=== PATIENT | female | born 1980 | race Caucasian/White ===

== ENCOUNTER 2016-12-10 20:18 | Emergency (ER) | payer SELFPAY ==
--- NOTE | 2016-12-10 20:28 | NUR ---
CALLED FOR TRIAGE NO ANSWER
--- NOTE | 2016-12-10 20:28 | NUR ---
PATIENT LEFT WITHOUT BEING SEEN BY DR. KIM. NO FURTHER CARE PROVIDED FOR PATIENT.
--- NOTE | 2016-12-10 20:46 | NUR ---
CALLED FOR SECOND TIME NO RESPONSE
== END 2016-12-10 20:28 | disposition left against medical advice (07) ==
LOC: MED 20:18
DX: Z76.0 Encounter for issue of repeat prescription (principal); Z53.21 Procedure and treatment not carried out due to patient leaving prior to being seen by health care provider

== ENCOUNTER 2016-12-14 19:32 | Emergency (ER) | payer OTHER ==
[~2016-12-14] VITALS: Ht 160 cm; Wt 75.5 kg
[2016-12-14 19:41] VITALS: BP 118/71
[2016-12-14 20:14] LABS: BASOPHILS # (AUTO) 0.1 K/uL (0.00-0.22); BASOPHILS % (AUTO) 1.2 % (0.0-2.0); EOSINOPHILS # (AUTO) 0.4 K/uL (0-0.4); EOSINOPHILS % (AUTO) 4.6 % (0.0-4.0); HEMATOCRIT 37.5 % (36-48); HEMOGLOBIN 12.9 g/dL (12.0-16.0); LYMPHOCYTES # (AUTO) 1.6 K/uL (2.5-16.5); LYMPHOCYTES % (AUTO) 20.6 % (20.5-51.1); MEAN CORPUSCULAR HEMOGLOBIN 30 pg (27-31); MEAN CORPUSCULAR HGB CONC 34 g/dL (33-37); MEAN CORPUSCULAR VOLUME 86 fL (80-94); MONOCYTES # (AUTO) 0.8 K/uL (0.8-1.0); MONOCYTES % (AUTO) 10.6 % (1.7-9.3); NEUTROPHILS # (AUTO) 4.8 K/uL (1.8-7.7); PLATELET COUNT (AUTO) 237 K/uL (140-450); RED BLOOD CELL COUNT(AUTO) 4.36 MIL/uL (4.20-5.40); RED CELL DISTRIBUTION WIDTH 13.2 % (11.6-13.7); WHITE BLOOD COUNT (AUTO) 7.7 K/uL (4.8-10.8)
[2016-12-14 20:31] LABS: ALBUMIN 3.9 g/dL (3.4-5.0); ANION GAP 8.5 (8-16); CARBON DIOXIDE 34.1 mmol/L (21-32); CREATININE 0.8 mg/dL (0.6-1.3); POTASSIUM 3.6 mmol/L (3.5-5.1); TOTAL BILIRUBIN 0.9 mg/dL (0.0-1.0)
--- NOTE | 2016-12-14 20:31 | NUR ---
AMBULATED TO ER BED 7
--- NOTE | 2016-12-14 20:31 | NUR ---
Yancy coughlin in ED - 12/14/16 at 2033 by [facility] AMBULATED TO ER BED 4
--- NOTE | 2016-12-14 20:45 | NUR ---
36 Y/O F W/C/O L ARM PAIN R/T ABRASIONS S/P FALL X 3 DAYS. PT DENIES ANY LOC. ABRASIONS NOTED TO L UPPER ARM. NO OTHER S/S OF DISTRESS NOTED. ER MD MADE AWARE.
--- NOTE | 2016-12-14 20:49 | NUR ---
GRACE TEE AT BEDSIDE EVALUATING PT.
[2016-12-14] MEDS ORDERED: SILVER SULFADIAZINE 1% 50 GM JAR TP ONE (20:55)
[2016-12-14 21:15] VITALS: BP 96/66
--- NOTE | 2016-12-14 21:15 | NUR ---
Patient discharged with v/s stable. Written and verbal after care instructions given and explained. Patient alert, oriented and verbalized understanding of instructions. Ambulatory with steady gait. All questions addressed prior to discharge. ID band removed. Patient advised to follow up with PMD OR RETURN TO ER IF CONDITION WORSENS. Rx of TRAMADOL, AND MOTRIN given. Patient educated on indication of medication including possible reaction and side effects. Opportunity to ask questions provided and answered.
== END 2016-12-14 21:15 | disposition home or self-care (01) ==
LOC: MED 19:32
DX: S40.212A Abrasion of left shoulder, initial encounter (principal); S40.812A Abrasion of left upper arm, initial encounter; V86.59XA Driver of other special all-terrain or other off-road motor vehicle injured in nontraffic accident, initial encounter; Y93.89 Activity, other specified; Y92.89 Other specified places as the place of occurrence of the external cause; Y99.8 Other external cause status
CPT/HCPCS: 36415; 73060; 80053; 81025; 85025; 99285

== ENCOUNTER 2018-02-06 20:05 | Emergency (ER) | payer OTHER ==
[~2018-02-06] VITALS: Ht 160 cm; Wt 70.3 kg
[2018-02-06 20:06] VITALS: BP 122/72
[2018-02-06] MEDS ORDERED: KETOROLAC 30 MG/ML VIAL IM ONE (20:50)
[2018-02-06] MEDS ORDERED: IBUPROFEN 600 MG TAB PO ONE (21:05)
[2018-02-06 21:31] VITALS: BP 122/72
== END 2018-02-06 21:31 | disposition home or self-care (01) ==
LOC: MED 20:05
DX: S83.91XA Sprain of unspecified site of right knee, initial encounter (principal); X58.XXXA Exposure to other specified factors, initial encounter; Y93.89 Activity, other specified; Y92.89 Other specified places as the place of occurrence of the external cause; Y99.8 Other external cause status
CPT/HCPCS: 29505; 73562; 81025; 99283; J1885

== ENCOUNTER 2018-06-25 18:21 | Emergency (ER) | payer OTHER ==
[~2018-06-25] VITALS: Ht 160 cm; Wt 78.0 kg
[2018-06-25 19:46] VITALS: BP 127/67
[2018-06-25] MEDS ORDERED: ONDANSETRON 4 MG ODT PO ONE (19:50)
--- NOTE | 2018-06-25 19:50 | NUR ---
PT AMBULATED TO LOBBY WITH VSS.
--- NOTE | 2018-06-25 20:20 | NUR ---
PT AMBULATED TO CHAIR E.
--- NOTE | 2018-06-25 20:30 | NUR ---
PT IS A 37 Y/O FEMALE WHO PRESENTS TO THE ED C/O BILATERAL EAR PAIN. PT STATES THAT IT HAS BEEN GOING ON X2 DAYS. PT REPORTS 6/10 ACHING BILATERAL EAR PAIN THAT DOES NOT RADIATE, PT DENIES HEARING LOSS. PT VERONICA CP, SOB, REPORTS DIZZINESS, NAUSEA/VOMITING DENIES DIARRHEA. PT AWAKE AND ALERT, RR EVEN/UNLABORED. PT REPOSITIONED FOR COMFORT, SITTING IN CHAIR. ER PROVIDER NOTIFIED. WILL CONTINUE TO MONITOR.
[2018-06-25] MEDS ORDERED: PANTOPRAZOLE 40 MG TABEC PO ONE (20:35)
[2018-06-25 21:07] VITALS: BP 132/82
--- NOTE | 2018-06-25 21:07 | NUR ---
Patient discharged with v/s stable. Written and verbal after care instructions given and explained. Patient alert, oriented and verbalized understanding of instructions. Ambulatory with steady gait. All questions addressed prior to discharge. ID band removed. Patient advised to follow up with PMD. Rx of RANITIDINE 150MG, KEFLEX 500MG AND LORATADINE 10MG given. Patient educated on indication of medication including possible reaction and side effects. Opportunity to ask questions provided and answered.
== END 2018-06-25 21:07 | disposition home or self-care (01) ==
LOC: MED 18:21
DX: H65.93 Unspecified nonsuppurative otitis media, bilateral (principal); K21.9 Gastro-esophageal reflux disease without esophagitis; N39.0 Urinary tract infection, site not specified
CPT/HCPCS: 81002; 81025; 99283; Q0162